=== PATIENT | female | born 1970 | race Caucasian/White ===

== ENCOUNTER → 2018-02-03 | Outpatient (CLI) | payer OTHER ==
[2018-02-03 17:59] LABS: BILIRUBIN,URINE NEG (NEG); CLARITY,URINE CLOUDY; COLOR,URINE ORANGE
[2018-02-03 18:00] LABS: BACTERIA,URINE FEW /HPF (0-FEW); RBC,URINE >40 /HPF (0-2); SQUAMOUS EPITHELIAL CELL,UR OCC /LPF; WBC,URINE >40 /HPF (0-4)
== END | disposition home or self-care (01) ==
LOC: SPEC 17:00
PROVIDERS: ATTEND Family Medicine
DX: N39.9 Disorder of urinary system, unspecified (principal)
CPT/HCPCS: 81001; 87086; 87186

== ENCOUNTER 2018-03-28 12:21 | Inpatient (IN) | payer SELFPAY ==
[~2018-03-28] VITALS: Ht 170.2 cm; Wt 75.4 kg
[2018-03-28 12:45] VITALS: BP 171/96
[2018-03-28] MEDS ORDERED: ZOLPIDEM 5 MG TABLET. PO PRN (13:00)
[2018-03-28 13:16] LABS: BASO % 0 % (0-3); EOS # 0.1 x10^3/uL (0.0-0.7); EOS % 1 % (0-3); HEMATOCRIT 37.6 % (36.0-47.0); HEMOGLOBIN 12.6 g/dL (12.0-15.5); LYMPH # 1.6 x10^3/uL (1.0-4.8); LYMPH % 15 % (24-48); MEAN CORPUSCULAR HEMOGLOBIN 30 pg (25-35); MEAN CORPUSCULAR HGB CONC 34 g/dL (31-37); MEAN CORPUSCULAR VOLUME 90 fL (79-100); MONO % 9 % (0-9); NEUT # 8.1 x10^3uL (1.8-7.7); NEUT % 74 % (31-73); PLATELET COUNT 161 x10^3/uL (140-400); RED BLOOD COUNT 4.16 x10^6/uL (3.50-5.40); RED CELL DISTRIBUTION WIDTH 13.6 % (11.5-14.5); WHITE BLOOD COUNT 10.9 x10^3/uL (4.0-11.0)
[2018-03-28 13:24] LABS: CALCIUM 8.6 mg/dL (8.5-10.1); CREATININE 0.7 mg/dL (0.6-1.0); GFR 89.3; POTASSIUM 3.6 mmol/L (3.5-5.1)
--- NOTE | 2018-03-28 14:33 | NUR ---
NSG NOTE; ADMISSION DIRECT ADMIT TO ROOM 113 AT 1235 VIA AMB ACCOMP BY MOTHER, FROM DR JOSÉ'S OFFICE
--- NOTE | 2018-03-28 14:35 | NUR ---
NSG NOTE; RIGHT BUTTOCKS REDDENED PT PRESENTS WITH RIGHT BUTTOCKS AREA, APPROX 11 X 11 CM, OF REDNESS, SWELLING, AND HARDNESS WITH SMALL PURPLE SPOT IN CENTER. REDDENED AREA MARKED WITH SHARPIE AT 1400. PT STATES AREA STARTED OUT SMALL ON WedMAR 23, 2018, BUT GREATLY INCREASED IN SIZE OVER THE WEEKEND AND HAS BECOME MORE PAINFUL SO SHE WENT TO DR JOSÉ'S OFFICE TODAY AND WAS DIRECTLY ADMITTED FOR IV ANTIBIOTICS.
[2018-03-28] MEDS ORDERED: VANCOMYCIN 2 GM in IV NORMAL SALINE 500ML 500 ML IV ONE (15:00)
[2018-03-28] MEDS: VANCOMYCIN PER PHARMACY MC PRN (15:11)
[2018-03-28] MEDS ORDERED: LEVO112T2 PO (15:15)
[2018-03-28] MEDS ORDERED: INSU100I13 SQ (15:15)
[2018-03-28] MEDS ORDERED: ESOM20CA PO (15:16)
[2018-03-28] MEDS: IV NORMAL SALINE 1,000ML 1,000 ML IV SCH (15:31)
[2018-03-28] MEDS: ACETAMINOPHEN 325 MG TABLET PO PRN (15:32)
[2018-03-28] MEDS: PROPRANOLOL 20 MG TABLET. PO SCH ×2 (15:32→21:18)
--- NOTE | 2018-03-28 15:50 | NUR ---
Pharmacy Vancomycin Dosing Note S:Consulted to monitor and dose vancomycin started 03/28/18. O:MARIA ISABEL POWELL is a 47 year old F with Sepsis . Height: 5 feet, 7 inches Weight: 75.246702 kg [place] Body Weight: 61.60 Adjusted Body Weight: 67.12 Dosing Weight: Actual Other Antibiotics: None LABS: Last BUN: 9 Last Creatinine: 0.7 Creatinine Clearance: 0.7 Last WBC: 10.9 Last Platelets: 161 Vancomycin Dosing: Loading Dose: 2000 mg x1 Dosing Weight: Actual Target Trough: 15-20 A: Based on: Actual weight, renal function and indication P: 1. Begin Vancomycin 1000 mg IV q8h 2. Follow up Trough level on 03/29/18 at 1330 3. Pharmacy will continue to monitor, follow and adjust therapy as needed. ZEUS LUX, 03/28/18 [id number]
--- NOTE | 2018-03-28 15:55 | RAD ---
AP and Lateral Views of the Chest 03/28/2018 12:46 PM Indication: Fever, cough Comparison: None Findings: There is no focal consolidation or infiltrate identified. The cardiomediastinal silhouette is within normal limits. There is no evidence of pneumothorax or pleural effusion. No acute osseous abnormalities are identified. Impression: No evidence of acute cardiopulmonary process. Electronically signed by: Oli Art MD (03/28/2018 3:51 PM) [facility]
--- NOTE | 2018-03-28 17:27 | NUR ---
NSG NOTE; TRANSFER REPORT GIVEN TO DARON RN PT TRANSFERRED TO ROOM ICU 6, NONSTATUS, FOR STAFFING PURPOSES
--- NOTE | 2018-03-28 18:15 | NUR ---
Nursing Note: For staffing reasons, patient transferred to ICU 6; pt remains med/surg status. This nurse took over care of this patient at approx. 1745.
[2018-03-28 18:35] VITALS: BP 122/69
--- NOTE | 2018-03-28 20:00 | NUR ---
Initial Nursing Assessment Pt resting in bed on her L side d/t pain from lying on her R buttock. At this time, pt states her pain level is tolerable and she does not want anything for pain. Pt has a 20g PIV in L AC with 125mL/hr NS. Pt is in bed but can get up ad kristen for bathroom, which pt does as Sandra Montenegro RN, is leaving room after initial assessment. Medications and POC discussed with pt, who was provided opportunity to ask questions. Pt is cooperative with all cares. Will continue to monitor. Sandra Montenegro RN
[2018-03-28 20:02] VITALS: BP 135/75
[2018-03-28] MEDS: INSULIN GLARGINE 300 UNITS/3 ML INSULN.PEN. SQ SCH (21:21)
[2018-03-28] MEDS: VANCOMYCIN 1 GM in IV NORMAL SALINE 250ML 250 ML IV SCH (22:29)
[2018-03-29] VITALS (12 sets, daily range): BP systolic 119–162; BP diastolic 64–86
[2018-03-29] MEDS: ACETAMINOPHEN 325 MG TABLET PO PRN (00:52)
[2018-03-29] MEDS: IV NORMAL SALINE 1,000ML 1,000 ML IV SCH ×4 (02:55→22:38)
--- NOTE | 2018-03-29 03:35 | RAD ---
EXT NON VASC RIGHT Clinical Indication: RT INF BUTTOCKS REDNESS, SWELLING PAINFUL HARD TO THE TOUCH, PT ADMITTED FOR IV ANTIBIOTICS Comparison: None. TECHNIQUE: Real-time ultrasound imaging in the right gluteal soft tissues area of concern is performed. Findings: In the right inferior gluteal region there is a hypoechoic area with irregular margins measuring up to 10 x 3.5 x 1.5 cm. Color Doppler interrogation is negative. There is subcutaneous edema in this region. Area of hypoechogenicity is parallel to the skin surface and has appearance of complex fluid. An organized or liquefied fluid collection more suggestive of an abscess is not seen. IMPRESSION: Irregular area of probable complex fluid in the right gluteal region with surrounding subcutaneous edema. Electronically signed by: Konrad Santos MD (03/29/2018 3:32 AM) [facility]
[2018-03-29 05:58] LABS: BASO # 0.1 x10^3/uL (0.0-0.2); BASO % 0 % (0-3); EOS # 0.1 x10^3/uL (0.0-0.7); EOS % 1 % (0-3); HEMATOCRIT 37.3 % (36.0-47.0); HEMOGLOBIN 12.5 g/dL (12.0-15.5); LYMPH # 1.2 x10^3/uL (1.0-4.8); LYMPH % 10 % (24-48); MEAN CORPUSCULAR HEMOGLOBIN 30 pg (25-35); MEAN CORPUSCULAR HGB CONC 34 g/dL (31-37); MEAN CORPUSCULAR VOLUME 91 fL (79-100); MONO # 0.9 x10^3/uL (0.0-1.1); MONO % 8 % (0-9); NEUT # 9.8 x10^3uL (1.8-7.7); NEUT % 81 % (31-73); PLATELET COUNT 150 x10^3/uL (140-400); RED BLOOD COUNT 4.12 x10^6/uL (3.50-5.40); RED CELL DISTRIBUTION WIDTH 13.6 % (11.5-14.5); WHITE BLOOD COUNT 12.1 x10^3/uL (4.0-11.0)
[2018-03-29] MEDS: LEVOTHYROXINE 112 MCG TABLET PO SCH (05:58)
[2018-03-29] MEDS: VANCOMYCIN 1 GM in IV NORMAL SALINE 250ML 250 ML IV SCH ×2 (06:00→13:51)
[2018-03-29] MEDS ORDERED: LORazepam 2 MG/ML VIAL IV PRN (09:00)
[2018-03-29] MEDS ORDERED: LORazepam 2 MG/ML VIAL ONE (09:04)
[2018-03-29] MEDS ORDERED: LIDOCAINE 2%/EPI 1:100,000 20 ML VIAL. IM ONE (09:15)
[2018-03-29] MEDS ORDERED: MIDAZOLAM HCL PF 5 MG/5 ML VIAL. ONE (09:16)
--- NOTE | 2018-03-29 10:09 | NUR ---
Assisting performance solutions specialist note: Time out:[address] Díaz and AUGUST Cedillo Pt draped and cleaned with iodine during sterile procedure Numbed with 2% LIDOCAINE with EPI PT also given IV Ativan 1 mg and Fentanyl 25mcg per order Dr Díaz cut open Right buttock with 11 blade scalpel Moderate amount of purulent drainage, Irrigated with 50 cc NS Culture sent to lab and Dr Díaz wanted a piece of tissue sent to pathology Dr Díaz drained everything he could then packed with iodoform Pt tolerated well Vitals taken q 3 min during procedure while on telemetry and Oxygen probe. See Vitals. Pulse ox stayed at 100 %Patient talking to us during whole procedure. PT recovered and feels better with less pressure in buttock Final recovery time 1009 [address] SCIENCE INSTRUCTOR CMSRN [place]
[2018-03-29] MEDS: PANTOPRAZOLE 40 MG TABLET. PO SCH (10:23)
[2018-03-29] MEDS: LACTOBACILLUS RHAMNOSUS GG 1 CAPSULE. PO SCH ×2 (10:23→20:53)
[2018-03-29] MEDS: PROPRANOLOL 20 MG TABLET. PO SCH ×2 (10:23→20:53)
--- NOTE | 2018-03-29 11:25 | OP ---
DATE OF SURGERY: 03/29/2018 PROCEDURE: I and D of the right gluteal, right upper thigh area a large abscess approximately 8-9 cm. DESCRIPTION OF PROCEDURE: After the patient gave the written consent of the possible complication, benefit versus risk. The patient displayed on her left side and using sterile prep with Betadine. The area was numbed with lidocaine 2% epinephrine to sufficient anesthesia excisions were made into the pus pocket and drained. There was also a specimen removed of the black hardened area that was removed from the area in question and was sent to pathology. There was approximately 10, 15, 20 mL of pus removed from the abscess and we also used Xeroform tape into the wound to act as a drain and then sterilely prepped. She will continue on IV antibiotic therapy. The I and D was successful. IMPRESSION: Post-procedure abscess. PROCEDURE: I and D of the abscessed area of the right gluteal area by Dr. Díaz. DEANN DÍAZ MD DR: KATRIN/laine JOB#: [id number] / [id number]
[2018-03-29 13:47] LABS: VANC TR 9.1 mcg/mL (10.0-20.0)
[2018-03-29] MEDS: VANCOMYCIN PER PHARMACY MC PRN (14:00)
--- NOTE | 2018-03-29 14:00 | NUR ---
Pharmacy Vancomycin Dosing Note S:Consulted to monitor and dose vancomycin started 03/28/18. O:MARIA ISABEL POWELL is a 47 year old F with Sepsis . Height: 5 feet, 7 inches Weight: 75.635670 kg [place] Body Weight: 61.60 Adjusted Body Weight: 67.16 Dosing Weight: Actual LABS: Last BUN: 9 Last Creatinine: 0.7 Creatinine Clearance: 0.7 Last WBC: 12.1 Last Platelets: 150 Microbiology: WOUND CULTURES PENDING Drug Levels: Last Trough level: 9.1 on 03/29/18 at 1330 Last dose given 03/29/18 at 0600 Vancomycin Dosing: Loading Dose: 2000 mg x1 Dosing Weight: Actual Target Trough: 15-20 A: Based on today's trough of 9.1, we will increase the dose. P: 1. Increase Vancomycin to 1250 mg IV q8h. 2. Follow up trough level on 03/30/18 at 2130. 3. Pharmacy will continue to monitor, follow and adjust therapy as needed. CLAUDIA JOHNSON RPH 03/29/18 1400
--- NOTE | 2018-03-29 15:45 | PN ---
DATE: 03/29/2018 SUBJECTIVE: The patient is doing somewhat better. The abscess on her right gluteal upper leg hamstring area is down somewhat, but there is still massive amounts of pus in there. We had a procedure done. OBJECTIVE: Temperature did go up to 99.3, pulse in the 80s. Blood pressure 150/80, respiratory rate 24. The patient is otherwise stable. IMPRESSION: Abscess of the right gluteal area, possible sepsis. PLAN: We will go ahead and continue on IV antibiotic therapy. Cultures taken as well as a path specimen was removed for the area that was debrided and I and D'd. DEANN JOSÉ MD DR: KATRIN/laine JOB#: [id number] / [id number]
[2018-03-29] MEDS ORDERED: ACETAMINOPHEN 500 MG TABLET PO PRN ×2 (17:00→18:00)
--- NOTE | 2018-03-29 20:00 | NUR ---
Initial Nursing Assessment Pt in bed, states that she has pain 5/10 in R buttock. Pt is A&Ox4 and cooperative with all cares. Pt has 20g in L AC with 125mL/hr NS. Will continue to monitor. Sandra Montenegro RN
[2018-03-29] MEDS: INSULIN GLARGINE 300 UNITS/3 ML INSULN.PEN. SQ SCH (22:33)
[2018-03-29] MEDS: VANCOMYCIN 1.25 GM in IV NORMAL SALINE 250ML 250 ML IV SCH (22:34)
[2018-03-30] MEDS: LEVOTHYROXINE 112 MCG TABLET PO SCH (05:30)
[2018-03-30] MEDS: VANCOMYCIN 1.25 GM in IV NORMAL SALINE 250ML 250 ML IV SCH ×3 (05:31→22:04)
[2018-03-30 05:33] VITALS: BP 136/74
[2018-03-30 06:26] LABS: BASO # 0.1 x10^3/uL (0.0-0.2); BASO % 1 % (0-3); EOS # 0.1 x10^3/uL (0.0-0.7); EOS % 1 % (0-3); HEMATOCRIT 35.7 % (36.0-47.0); LYMPH # 1.4 x10^3/uL (1.0-4.8); LYMPH % 12 % (24-48); MEAN CORPUSCULAR HEMOGLOBIN 31 pg (25-35); MEAN CORPUSCULAR HGB CONC 34 g/dL (31-37); MEAN CORPUSCULAR VOLUME 91 fL (79-100); MONO # 0.8 x10^3/uL (0.0-1.1); MONO % 7 % (0-9); NEUT # 9.5 x10^3uL (1.8-7.7); NEUT % 79 % (31-73); PLATELET COUNT 165 x10^3/uL (140-400); RED BLOOD COUNT 3.92 x10^6/uL (3.50-5.40); RED CELL DISTRIBUTION WIDTH 13.8 % (11.5-14.5)
[2018-03-30 06:39] LABS: ALBUMIN 2.6 g/dL (3.4-5.0); ALBUMIN/GLOBULIN RATIO 0.7 (1.0-1.7); CALCIUM 8.3 mg/dL (8.5-10.1); CREATININE 0.6 mg/dL (0.6-1.0); GFR 106.7; POTASSIUM 3.5 mmol/L (3.5-5.1); TOTAL BILIRUBIN 0.5 mg/dL (0.2-1.0); TOTAL PROTEIN 6.6 g/dL (6.4-8.2)
[2018-03-30] MEDS: IV NORMAL SALINE 1,000ML 1,000 ML IV SCH ×3 (08:38→20:50)
[2018-03-30] MEDS: PANTOPRAZOLE 40 MG TABLET. PO SCH (08:38)
[2018-03-30] MEDS: LACTOBACILLUS RHAMNOSUS GG 1 CAPSULE. PO SCH ×2 (08:38→22:03)
[2018-03-30] MEDS: PROPRANOLOL 20 MG TABLET. PO SCH ×2 (08:39→22:03)
[2018-03-30] MEDS ORDERED: HYDROcodone/APAP 7.5/325MG 1 TAB TABLET PO PRN (09:30)
[2018-03-30] MEDS: HYDROcodone/APAP 7.5/325MG 1 TAB TABLET PO PRN ×2 (15:57→22:18)
[2018-03-30 18:03] VITALS: BP 150/81
--- NOTE | 2018-03-30 18:13 | NUR ---
Pt states pain is much better controlled after increased dose of Lortab. Pain at 3/10. Dressing changed at 0900 and at 1800, moderate amount of SA and creamy drainage noted. Wound packed and ABD dressing applied. Redness and swelling remains to site, nurse did notice an increase in swelling since this AM. Continues to be tender to touch. Patient states she feels like she is able to rest finally after pain is under control. IV ABT and fluids continue. Pt able to verbalize POC, will continue to monitor.
[2018-03-30 21:25] LABS: VANC TR 14.6 mcg/mL (10.0-20.0)
[2018-03-30] MEDS: INSULIN GLARGINE 300 UNITS/3 ML INSULN.PEN. SQ SCH (22:16)
--- NOTE | 2018-03-30 22:29 | PN ---
DATE: 03/30/2018 SUBJECTIVE: The patient is a 47-year-old female who is in with cellulitis to her right hip and sepsis. The patient is making fairly good progress, had an I and D yesterday. Copious amounts of drainage still coming out. Otherwise, the patient continues on vancomycin and Levaquin. She is doing somewhat better. We are trying to switch her over to oral pain medications, overall. OBJECTIVE: VITAL SIGNS: Blood pressure 120/70, pulse 80, respiratory rate 16. She is afebrile. GENERAL APPEARANCE: She is alert and oriented. LUNGS: Clear. The pain still fairly severe at 7-8, but down from 9-10. PLAN: Otherwise, looking at the copious drainage, we still need culture and sensitivity on it and we will make further evaluation on her as indicated. IMPRESSION: Cellulitis and abscess to the right hip, gluteal and right upper thigh area. DEANN JOSÉ MD DR: KATRIN/laine JOB#: [id number] / [id number]
[2018-03-31] MEDS: LEVOTHYROXINE 112 MCG TABLET PO SCH (05:12)
[2018-03-31] MEDS: IV NORMAL SALINE 1,000ML 1,000 ML IV SCH (05:12)
[2018-03-31] MEDS: HYDROcodone/APAP 7.5/325MG 1 TAB TABLET PO PRN (05:15)
[2018-03-31] MEDS: VANCOMYCIN 1.25 GM in IV NORMAL SALINE 250ML 250 ML IV SCH (06:25)
[2018-03-31] MEDS ORDERED: VANC1VIA3 MC (09:34)
[2018-03-31] MEDS ORDERED: HYDR-2762 PO (09:34)
[2018-03-31] MEDS ORDERED: PROP20TA PO (09:34)
[2018-03-31] MEDS: PROPRANOLOL 20 MG TABLET. PO SCH (10:04)
[2018-03-31] MEDS: LACTOBACILLUS RHAMNOSUS GG 1 CAPSULE. PO SCH (10:04)
[2018-03-31] MEDS: PANTOPRAZOLE 40 MG TABLET. PO SCH (10:04)
--- NOTE | 2018-03-31 10:11 | NUR ---
Dr. Díaz here at this time to see patient. Plan is to discharge home with outpatient services. Plan is for patient to come to facility twice a day for IV ABT Vanco, with dressing change daily adn prn.
[2018-03-31 10:20] VITALS: BP 164/91
--- NOTE | 2018-03-31 11:01 | NUR ---
Orders to leave IV in place, patient to come back tonight for IV Vanco. Dressing changed at this time. Educated patient in regards to Outpatient infusion therapy. Patient understands plan of care. Lortab prescription given to patient.
--- NOTE | 2018-03-31 11:36 | NUR ---
Pt ambulated off unit independently with father to car. IV remains in place. Pt educated over outpatient infusions and will be here tonight for therapy.
--- NOTE | 2018-03-31 13:25 | DS ---
DATE OF DISCHARGE: 03/31/2018 HOSPITAL COURSE: The patient was admitted with sepsis. She had large, about 10 cm abscess in her right gluteal area, very painful. The patient has pain 10/10, elevated temperatures. The patient was quite ill and these have been going on for some time. The patient made good progress during the rest of her hospitalization. She was placed on IV vancomycin and Levaquin. Reports came back on I and D showed Gram-positive bacteria in clusters, probably Staph obviously and the patient continued to be monitored. She made good progress. She required pain medication because of the severity of the pain. She will continue on IV vancomycin through final sensitivity reports are reported as an outpatient, hydrocodone for pain because of the pain of this abscess. She has a drain in place and the drain will be changed daily by the nursing staff. She will follow up with me. She will stay out of work, on regular diet, decreased activity, and make further evaluation. IMPRESSION: Abscess, probable Staphylococcus, but I did mention sepsis, hyperglycemia, [id number] protein malnutrition. The patient continued to be monitored as an outpatient and receive at least IV vancomycin for at least another 7 days. DEANN JOSÉ MD DR: KATRIN/laine JOB#: [id number] / [id number]
--- NOTE | 2018-03-31 16:14 | PATHOLOGY ---
[facility] Accession Number: [id number] . 01 Material submitted: . CELLULITIS RIGHT BUTTOCK . 01 Clinical history: . Cellulitis right buttock . 02 Diagnosis: Skin, right buttock: - Epidermal necrosis with underlying hemorrhage and intense acute inflammation. . (JPM:vjm;03/31/2018) [facility]/03/31/2018 . 02 Electronically signed: . Francisco Groves MD, Pathologist NPI- [id number] . 01 Gross description: . Received in formalin labeled "Iwona Aponte, R buttocks," is a shave biopsy specimen measuring 0.6 x 0.4 x 0.2 cm in greatest dimensions. The epidermal surface displays a granular, dark brown papule measuring 0.3 x 0.3 by less than 0.1 cm. The surgical margin is inked, and the specimen is bisected and submitted entirely in cassette A1. ([facility]; 03/30/2018) XDC/XDC . 02 Pathologist provided ICD-10: I96, L08.9 . 02 CPT . 587214 Specimen Comment: A courtesy copy of this report has been sent to Specimen Comment: [phone], . Specimen Comment: Report sent to / DR SERRANO Specimen Comment: A duplicate report has been generated due to demographic updates. Performed at: 01 [facility] [address] [facility] [address], [place] [id number] MD Greg Dunne MD Phone: [phone] Performed at: 02 [facility] [address], [place] [id number] MD Francisco Groves MD Phone: [phone]
== END 2018-03-31 11:25 | disposition home or self-care (01) | DRG 871 ==
LOC: 1 SOUTH 12:21 → ICU 18:00
PROVIDERS: ADMIT Family Medicine; ATTEND Family Medicine
PROC: 0HB8XZX Excision of Buttock Skin, External Approach, Diagnostic (ICD-10-PCS; principal; 2018-03-29)
DX: A41.9 Sepsis, unspecified organism (principal); E43 Unspecified severe protein-calorie malnutrition; L02.31 Cutaneous abscess of buttock; L02.415 Cutaneous abscess of right lower limb; L03.115 Cellulitis of right lower limb; Z68.26 Body mass index [BMI] 26.0-26.9, adult; Z23 Encounter for immunization
CPT/HCPCS: 36415; 71046; 76881; 80048; 80053; 80202; 82947; 85025; 87040; 87071; 87075; 87641; 88304; 90471; 90756; J1815; J1956; J2060; J3010; J3370; J7040; J7050; J7030; Q2035